=== PATIENT | male | born 1990 | race Two or more races ===

== ENCOUNTER 2025-06-19 19:31 | Emergency (ER) | payer OTHER, SELFPAY ==
[2025-06-19 19:33] VITALS: BP 109/68; PULSE 85; RESP 19; TEMP 37.3; O2SAT 100; BMI 21.6
--- NOTE | 2025-06-19 19:34 | XR_ITS ---
Examination: Testicular sonography complete Technique: Grayscale sonographic images testes, assessment arterial inflow venous outflow Doppler spectral analysis color flow analysis Date and time: June 19, 2025 1949 hrs. Indications: Left testicular pain and swelling 3 years Findings: Right testis 4.9 cm epididymis 1.0 cm Arterial flow testicle. No testicular mass Left testis 4.3 cm epididymis 1.0 cm Arterial flow testicle. No testicular mass Large inguinal hernia extending into the scrotum with bowel Large hydrocele Bilateral microlithiasis Impression: No testicular torsion or testicular mass Large left inguinal hernia containing bowel extending into the scrotum Testicular microlithiasis
--- NOTE | 2025-06-19 19:34 | EDNOTE_ITS ---
ED General RME/HPI General Chief complaint: General Adult/Misc Complain Stated complaint: MEDICAL CLEARANCE Time Seen by Provider: 06/19/25 19:33 Arrival date/time: 06/19/25 19:31 RME / HPI RME / HPI narrative: 34-year-old male patient was brought in for the residential for evaluation regarding scrotal swelling. Patient has been having scrotal swelling for the last 28 years, he told me it started when he was 6-year-old, patient denies any pain, denies any dysuria denies any abdominal pain patient had 1 episode of vomiting earlier today. No fever noted. No surgery done on the scrotum. Review of Systems Review of Systems Narrative Review of Systems: Review of system reviewed and within normal limits except mentioned in HPI ED Exam Narrative Physical exam: VITAL SIGNS: Reviewed. GENERAL APPEARANCE: Alert and interactive, follows commands, no acute distress, HEAD AND FACE: Non-traumatic. ENT: PERRL, pink conjunctivitis, eyelid no trauma, Mucous membrane moist. NECK: Supple, nontender, no nuchal rigidity. CHEST: No tenderness, no crepitus, no paradoxical movement, no retractions. LUNGS: Clear, well ventilated, symmetric, no rales, no wheezing, no ronchi, no stridor, good breath sounds bilaterally. HEART: Regular rate, regular rhythm, no murmur, no gallops. ABDOMEN: Soft, positive bowel sounds, nondistended, no guarding, nontender, no rebound, no masses, RECTAL: Deferred. GENITAL: Bilateral scrotal swelling, nontender no redness NEUROLOGICAL: Gross motor function intact sensory function intact, Appropriate for age. MUSCULOSKELETAL: low back nontender, full range of motion. EXTREMITIES: Nontender, full range of motion. SKIN: Color pink, dry, no rash, no lacerations, no abrasions, no contusions. LYMPHATICS: Deferred. Course Quality Measures none Orders Category Date Time Status US scrotum Stat Exams 06/19/25 19:34 Completed CBC [CBC] Stat Lab 06/19/25 19:43 Completed CMP [Comprehensive Metabolic Panel] Stat Lab 06/19/25 19:43 Completed UA, C/S IF [Urinalysis, C/S if Indicated] Stat Lab 06/19/25 19:47 Completed Vital Signs Vital signs: Vital Signs Temperature 99.2 F 06/19/25 19:33 Pulse Rate 85 06/19/25 19:33 Respiratory Rate 19 06/19/25 19:33 Blood Pressure 109/68 06/19/25 19:33 Pulse Oximetry (%) 100 06/19/25 19:33 Oxygen Delivery Method Room Air 06/19/25 19:33 Discharge Plan Plan Patient Disposition: Snf/Court/Law Discharge Disposition comment: Stable Prescriptions/Referrals Referrals: No Primary/Family,Physician [Primary Care Provider] - In 1 week Problem List Clinical Impression: Inguinal hernia of left side without obstruction or gangrene Patient/Caregiver Discharge Instructions Discharge Activity: activity as tolerated Education Materials: What Is a Hernia? Additional Instructions: Thank you for the opportunity for serving you today. You are stable for discharged . You are advised to: Follow-up with your PCP and ask for referral to general surgeon regarding outpatient management of your hernia for possible surgery once you get out of residential Return to ED for worsening of symptoms Print Language: Maldivian PA/STEFANY Supervising Physician PA/STEFANY Supervising Physician: Dr Harvey MDM Narrative MDM hospital course (for use when minimal MDM required): 34-year-old male patient was brought in for the residential for evaluation regarding scrotal swelling. Patient has been having scrotal swelling for the last 28 years, he told me it started when he was 6-year-old, patient denies any pain, denies any dysuria denies any abdominal pain patient had 1 episode of vomiting earlier today. No fever noted. No surgery done on the scrotum. Ultrasound of the scrotum showed large inguinal hernia containing bowels, all the way to the scrotum. Nontender no redness Patient's workup all came back normal. Stable for discharge back to the residential, advised him to follow-up with outpatient general surgeon for definitive management of the left inguinal hernia. Diagnosis Differential Diagnosis ED Complaint MDM: Inguinal hernia, asymptomatic inguinal hernia Diagnoses ruled out and/or further discussions: aSymptomatic inguinal hernia
[2025-06-19 19:50] LABS: Basophils # (Auto) 0.0 Thou/mm3 (0.0-0.2); Basophils % (Auto) 0 % (0-2.5); Eosinophils # (Auto) 0.2 Thou/mm3 (0.0-0.5); Eosinophils % (Auto) 1 % (0-10); Hematocrit 39.8 % (41.0-53.0); Hemoglobin 13.3 g/dL (13.5-16.0); Immature Granulocytes Auto 0.05 Thou/mm3 (0.00-0.00); Lymphocytes # (Auto) 2.4 Thou/mm3 (1.0-4.8); Lymphocytes % (Auto) 20 % (10-50); Mean Corpuscular HGB Conc 33.4 g/dl (31.0-37.0); Mean Corpuscular Hemoglobin 30.1 pg (25.0-35.0); Mean Corpuscular Volume 90 fL (80-100); Monocytes # (Auto) 0.8 Thou/mm3 (0.0-0.8); Monocytes % (Auto) 7 % (0-12); Neutrophils # (Auto) 8.2 Thou/mm3 (1.8-7.7); Neutrophils % (Auto) 71 % (37-80); Nucleated Red Blood Cell # 0.00 Thou/mm3 (0.00-0.00); Nucleated Red Blood Cell % 0 /100 WBC (0); Platelet Count 272 Thou/mm3 (140-440); RDW Standard Deviation 40.4 fL (35.1-43.9); Red Blood Count 4.42 Miln/mm3 (4.50-5.90); White Blood Count 11.6 Thou/mm3 (3.8-10.6)
[2025-06-19 20:03] LABS: Collection Type, Urine Clean Catch; Squamous Epithelial Cell,Urine 0 /hpf (0-5)
[2025-06-19 20:07] LABS: Alanine Aminotransferase 13 U/L (10-49); Albumin, Serum 4.2 gm/dL (3.5-5.0); Albumin/Globulin Ratio 1.8 (1.2-2.2); Alkaline Phosphatase 72 U/L (46-116); Anion Gap 8 (7-16); Aspartate Amino Transferase 16 U/L (0-34); BUN/Creatinine Ratio 9 Ratio (12-20); Bilirubin,Total 0.3 mg/dL (0.3-1.2); Blood Urea Nitrogen 7 mg/dL (9-23); Calcium 9.2 mg/dL (8.3-10.6); Calcium (Corrected) 9.2 mg/dL (8.5-10.1); Carbon Dioxide 30.0 mMol/L (20.0-31.0); Chloride 103 mMol/L (98-107); Creatinine (Component) 0.8 mg/dL (0.6-1.3); Estimated Creatinine Clearance 131.8 mL/min (>60); Globulin 2.4 gm/dL (2.3-3.5); Glucose 105 mg/dL (74-106); Osmolality,Calculated 279 (275-295); Potassium 3.8 mMol/L (3.4-5.1); Sodium 141 mMol/L (136-145); Total Protein 6.6 gm/dL (5.7-8.2); eGFR > 60 See Note
[2025-06-19 20:20] LABS: Amorphous Crystals,Urine Present (Absent); Bilirubin,Urine Negative (Negative); Blood,Urine Negative (Negative); Budding Yeast,Urine Present; Clarity,Urine Turbid (Clear/Hazy); Color,Urine Lt-Yellow (Lt Yel-Yel); Culture Indicated,Urine Not Indicated; Glucose, Urine Negative (Negative); Ketones,Urine Negative (Negative); Leukocyte Esterase,Urine Negative (Negative); Nitrite,Urine Negative (Negative); PH,Urine 7.5 (5.0-7.0); Protein,Urine Negative (Neg - Trace); RBC,Urine 1 /hpf (0-3); Specific Gravity,Urine 1.015 (1.001-1.035); Urobilinogen,Urine Negative mg/dL (0.0-1.0); WBC,Urine 5 /hpf (0-5)
[2025-06-19 21:28] VITALS: RESP 16
== END 2025-06-19 21:29 ==
PROVIDERS: Nurse Practitioner Family; Emergency Provider Emergency Medicine
DX: Z02.89 Encounter for other administrative examinations (principal); K40.90 Unilateral inguinal hernia, without obstruction or gangrene, not specified as recurrent
CPT/HCPCS: 36415; 76870; 80053; 81001; 85025; 99284